=== PATIENT | female | born 1975 | race Caucasian/White ===

== ENCOUNTER → 2023-10-03 08:34 | Outpatient (REF) | payer BC, SELFPAY | LOC: RCS 08:34 | PROVIDERS: ATTENDING PHYSICIAN Internal Medicine Cardiovascular Disease; FAMILY PHYSICIAN Family Medicine | DX: R00.2 Palpitations (principal); D05.02 Lobular carcinoma in situ of left breast; T45.1X5A Adverse effect of antineoplastic and immunosuppressive drugs, initial encounter; I34.0 Nonrheumatic mitral (valve) insufficiency | CPT/HCPCS: 93306; 93356 ==

== ENCOUNTER 2025-03-26 06:21 | Day surgery (SDC) | payer BC, SELFPAY | END 2025-03-26 12:36 | disposition home or self-care (01) | LOC: GI 06:21 | PROVIDERS: ATTENDING PHYSICIAN Internal Medicine Gastroenterology | DX: Z12.11 Encounter for screening for malignant neoplasm of colon (principal); K64.9 Unspecified hemorrhoids; K57.30 Diverticulosis of large intestine without perforation or abscess without bleeding; K63.5 Polyp of colon | CPT/HCPCS: 45385; 88305 ==